=== PATIENT | male | born 1995 | race Caucasian/White ===

== ENCOUNTER 2021-06-07 18:26 | Emergency (ER) | payer BC, SELFPAY ==
[2021-06-07 18:51] VITALS: BP 124/82; PULSE 99; RESP 16; TEMP 36.9; O2SAT 94
--- NOTE | 2021-06-07 19:45 | ED_ITS ---
HPI - General Adult General: Chief complaint: General Medical Stated complaint: sore throat Time Seen by Provider: 06/07/21 19:36 Source: patient Mode of arrival: ambulatory Limitations: no limitations History of Present Illness: 26-year-old male states he has had a sore throat since Friday states that he saw Ryan Dialek on Friday started on amoxicillin states he is actually some improvement since then but he still having pain on the right side. States Friday he is having some difficulty swallowing that is improved states he still has pain with swallowing does have a slightly muffled voice denies any vomiting denies any diarrhea denies any fever. Associated symptoms: Deny chest pain, dyspnea, headache(s), nausea, rash or vomiting Review of Systems Const: Denies: fever(s), chills, body aches or change in appetite Eyes: Denies: blurry vision or eye discomfort ENMT: Reports: throat pain Card: Denies: chest pain Resp: Denies: dyspnea GI: Denies: abdominal pain, nausea, vomiting or diarrhea : Denies: dysuria Musc: Denies: neck pain or back pain Skin/Breast: Denies: rash Neuro: Denies: headache(s) Psych: Denies: depression Anam/Lymph: Denies: easy bruising All/Imm: Denies: urticaria Physical Exam Const: COMMON NORMALS: no acute distress, patient oriented x3 and healthy appearing HENMT: COMMON NORMALS: normocephalic and atraumatic HEAD & SCALP: normocephalic and atraumatic OTHER: Peritonsillar abscess to right tonsil with some uvular deviation he is handling secretions well no difficulty breathing Eye: COMMON NORMALS: Equal, round and reactive pupils present and EOMs intact bilaterally PUPIL: Yes Equal, round and reactive pupils present Neck/C-Spine: COMMON NORMALS: full ROM and supple Chest: COMMONS NORMALS: normal inspection of the chest and normal palpation of entire chest wall Resp: COMMON NORMALS: normal respiratory effort, No retractions, No use of accessory muscles and clear to auscultation bilaterally AUSCULTATION: clear to auscultation bilaterally Cardio: COMMON NORMALS: regular rate, regular rhythm and No murmurs present (Cardio) RATE: regular rate RHYTHM: regular rhythm GI: COMMON NORMALS: Normal to inspection, nondistended, normoactive bowel sounds present, Soft to palpation, non-tender and no masses PALPATION: Yes Soft to palpation Extremity: COMMON NORMALS: normal to inspection and full ROM Neuro: COMMON NORMALS: patient oriented x3, moves all extremities and no focal motor deficits Psych: COMMON NORMALS: mental status grossly normal, Normal thought process present and cooperative THOUGHT PROCESS: Normal thought process present Skin: COMMON NORMALS: no rashes or lesions noted and no wounds GENERAL SKIN EXAM: no rashes or lesions noted Course Vital Signs: Vital signs: Vital Signs Temperature 98.4 F 06/07/21 18:51 Pulse Rate 99 06/07/21 18:51 Respiratory Rate 16 06/07/21 18:51 Blood Pressure 124/82 06/07/21 18:51 Pulse Oximetry 94 06/07/21 18:51 [facility] - General Adult Medical Decision Making Patient presents here with peritonsillar abscess I did speak to ENT we'll give him Decadron clindamycin he is to follow-up with ENT in the morning he is handling secretions well having no difficulty breathing he is return if worsening he understands agrees to plan. Lab Data : 06/07/21 19:45 Laboratory Results WBC 14.9 10^3/uL (4.0-10.0) H 06/07/21 19:45 RBC 5.27 10^6/uL (4.1-5.3) 06/07/21 19:45 Hgb 15.0 g/dL (11.7-16.6) 06/07/21 19:45 Hct 44.9 % (42.0-52.0) 06/07/21 19:45 MCV 85.2 fl (80-94) 06/07/21 19:45 MCH 28.5 pg (28.0-34.0) 06/07/21 19:45 MCHC 33.4 g/dL (30.0-36.0) 06/07/21 19:45 RDW 11.7 % (12.1-15.1) L 06/07/21 19:45 Plt Count 411 10^3/cmm (130-400) H 06/07/21 19:45 MPV 10.0 fL (7.4-10.4) 06/07/21 19:45 Neut % (Auto) 64.3 % 06/07/21 19:45 Lymph % (Auto) 21.5 % 06/07/21 19:45 [place] % (Auto) 9.4 % 06/07/21 19:45 Eos % (Auto) 3.8 % 06/07/21 19:45 Baso % (Auto) 0.4 % 06/07/21 19:45 Neut # (Auto) 9.54 10^3/uL (1.8-7.7) H 06/07/21 19:45 Lymph # (Auto) 3.2 10^3/uL (0.8-4.8) 06/07/21 19:45 [place] # (Auto) 1.4 10^3/uL (0.2-0.9) H 06/07/21 19:45 Eos # (Auto) 0.6 10^3/uL (0.0-0.8) 06/07/21 19:45 Baso # (Auto) 0.1 10^3/uL (0.0-0.1) 06/07/21 19:45 Nucleated RBC % (auto) 0 % 06/07/21 19:45 Nucleated RBCs # 0.0 /100WBC 06/07/21 19:45 Discharge Plan Discharge Patient Disposition: Home Clinical Impression: Abscess, peritonsillar Condition: Stable Prescriptions: New clindamycin HCl 300 mg capsule 300 mg PO Q8H 7 Days Qty: 21 0RF Discharge Orders: Discharge ED (Routine); Ordered 06/07/21 Ordered By: Yesenia Brown Referrals: Terrell Carpio MD [Physician] - 1-3 days Flor Reid FNP-C [Primary Care Provider] - Discharge Diet: Advance as tolerated Discharge Activity: Resume usual activity Coding Level of Care Code ED Workers Compensation Claims Examiner for Chg Fwd Exam Comprehensive
[2021-06-07] MEDS: dexamethasone 10 mg/mL INJ IVP (19:47)
[2021-06-07] MEDS: sodium chloride 0.9% 1,000 ML 999 ML IV (19:49)
[2021-06-07 19:55] LABS: Basophils # 0.1 10^3/uL (0.0-0.1); Basophils % 0.4 %; Eosinophils # 0.6 10^3/uL (0.0-0.8); Eosinophils % 3.8 %; Hematocrit 44.9 % (42.0-52.0); Lymphocytes # 3.2 10^3/uL (0.8-4.8); Lymphocytes % 21.5 %; Mean Corpuscular HGB Conc 33.4 g/dL (30.0-36.0); Mean Corpuscular Hemoglobin 28.5 pg (28.0-34.0); Mean Corpuscular Volume 85.2 fl (80-94); Monocytes # 1.4 10^3/uL (0.2-0.9); Monocytes % 9.4 %; Neutrophils # 9.54 10^3/uL (1.8-7.7); Neutrophils % 64.3 %; Nucleated Red Blood Cells % 0 %; Platelet Count 411 10^3/cmm (130-400); Red Blood Count 5.27 10^6/uL (4.1-5.3); Red Cell Distribution Width 11.7 % (12.1-15.1); White Blood Count 14.9 10^3/uL (4.0-10.0)
[2021-06-07 20:50] VITALS: RESP 16
--- NOTE | 2021-06-08 06:38 | DCPLANNER ---
Addendum entered by Liv Goldman 06/08/21 14:39: Patient had a follow up appointment scheduled for 06.08.21 with ENT - patient did attend appointment. Original Note: manager creative had message to schedule a follow up appointment for patient with ENT. manager creative emailed patients information to Saadia Cortes Angelica and Catrachita at [facility] General Surgery / ENT clinic. Patients information will be printed and reviewed. Clinic will call patient with appointment information.
== END 2021-06-07 20:30 | disposition home or self-care (01) ==
PROVIDERS: Emergency Provider Emergency Medicine; PCP Nurse Practitioner Family
DX: J36 Peritonsillar abscess (principal)
CPT/HCPCS: 85025; 96361; 96374; 99283; J1100; J7030

== ENCOUNTER → 2021-06-08 09:20 | Outpatient (BNVA) | payer BC, SELFPAY | PROVIDERS: Visit Provider Otolaryngology | DX: J36 Peritonsillar abscess (principal) | CPT/HCPCS: 87070; 87075; 87077; 87205 ==

== ENCOUNTER 2022-04-23 17:51 | Emergency (ER) | payer BC, SELFPAY ==
--- NOTE | 2022-04-23 18:12 | XRR_ITS ---
PROCEDURE INFORMATION: Exam: XR Chest Exam date and time: 04/23/2022 6:27 PM Age: 27 years old Clinical indication: Cough TECHNIQUE: Imaging protocol: Radiologic exam of the chest. Views: 1 view. COMPARISON: CR XR chest 2V* [id number] 09/24/2016 2:03 PM FINDINGS: Lungs: There is a small cavitary lesion in the left lateral lung base. This measures about 4 cm. RUL azygous lobe/fissure. Pleural spaces: No effusion or pneumothorax noted. Heart/Mediastinum: Unremarkable. No cardiomegaly. Bones/joints: Unremarkable. XR/XR chest 1V portable [id number] IMPRESSION: Left lateral lung base small cavitary lesion, which may be a lung abscess or cavitary pneumonia. CT chest should be considered. This is new from prior.
[2022-04-23 18:17] VITALS: BP 133/79; PULSE 114; RESP 16; TEMP 37.1; O2SAT 96; BMI 32.1
--- NOTE | 2022-04-23 18:27 | W.ED.EXTPRO ---
HPI - Extremity Problem General: Chief complaint: Upper Respiratory Infection Stated complaint: cough/congestion Time Seen by Provider: 04/23/22 18:24 Source: patient Mode of arrival: ambulatory Limitations: no limitations History of Present Illness: 27-year-old male states he had cough congestion over the last 2 days. States the cough has been dry in nature. He states he has had some body aches low-grade fevers he has had no sick contacts states his cough is worsened today he denies any shortness of breath he is in no distress. Denies any pain anywhere. Denies any worsening proving factors. Associated symptoms: Deny chest pain or rash Review of Systems Const: Reports: chills and body aches Eyes: Denies: blurry vision or eye discomfort ENMT: Denies: throat pain or dental pain Card: Denies: chest pain Resp: Reports: non-productive cough GI: Denies: abdominal pain, nausea, vomiting or diarrhea : Denies: dysuria Musc: Denies: neck pain or back pain Skin/Breast: Denies: rash Neuro: Denies: headache(s) Psych: Denies: depression Anam/Lymph: Denies: easy bruising All/Imm: Denies: urticaria PFSH ED PFSH: Medical History (Updated 04/23/22 @ 20:08 by Yesenia Brown MD) Peritonsillar abscess Social History Smoking and tobacco status: never smoked Physical Exam Const: COMMON NORMALS: no acute distress, patient oriented x3 and healthy appearing HENMT: COMMON NORMALS: normocephalic and atraumatic HEAD & SCALP: normocephalic and atraumatic Eye: COMMON NORMALS: Equal, round and reactive pupils present and EOMs intact bilaterally PUPIL: Yes Equal, round and reactive pupils present Neck/C-Spine: COMMON NORMALS: full ROM and supple Chest: COMMONS NORMALS: normal inspection of the chest and normal palpation of entire chest wall Resp: COMMON NORMALS: normal respiratory effort, No retractions, No use of accessory muscles and clear to auscultation bilaterally AUSCULTATION: clear to auscultation bilaterally Cardio: COMMON NORMALS: regular rate, regular rhythm and No murmurs present (Cardio) RATE: regular rate RHYTHM: regular rhythm GI: COMMON NORMALS: Normal to inspection, nondistended, normoactive bowel sounds present, Soft to palpation, non-tender and no masses PALPATION: Yes Soft to palpation Extremity: COMMON NORMALS: normal to inspection and full ROM Neuro: COMMON NORMALS: patient oriented x3, moves all extremities and no focal motor deficits Psych: COMMON NORMALS: mental status grossly normal, Normal thought process present and cooperative THOUGHT PROCESS: Normal thought process present Skin: COMMON NORMALS: no rashes or lesions noted and no wounds GENERAL SKIN EXAM: no rashes or lesions noted Course Vital Signs: Vital signs: Vital Signs Temperature 98.7 F 04/23/22 18:17 Pulse Rate 114 H 04/23/22 18:17 Respiratory Rate 16 04/23/22 18:17 Blood Pressure 133/79 04/23/22 18:17 Pulse Oximetry 96 04/23/22 18:17 Oxygen Delivery Me thod 04/23/22 18:17 MDM - Extremity (Nontraumatic) Medical Decision Making Patient presents here with cough congestion likely an upper respiratory infection x-ray was a concern for a lesion but CT scan was normal he is well-appearing here he is in no distress he is stable for discharge he is to follow-up his PCP and return if worsening. Lab Data 04/23/22 19:15 04/23/22 19:15 Radiology Impressions Chest X-Ray 04/23/22 18:12 IMPRESSION: Left lateral lung base small cavitary lesion, which may be a lung abscess or cavitary pneumonia. CT chest should be considered. This is new from prior. Chest CT 04/23/22 18:41 IMPRESSION: 1. No definite acute finding visualized. 2. The suspected lesion on the same-day chest x-ray is explained by some lingular atelectasis or scarring in the adjacent subdiaphragmatic tissue. 3. A few chronic/incidental findings above. Laboratory Results WBC 13.5 10^3/uL (4.0-10.0) H 04/23/22 19:15 RBC 5.49 10^6/uL (4.1-5.3) H 04/23/22 19:15 Hgb 15.2 g/dL (11.7-16.6) 04/23/22 19:15 Hct 45.7 % (42.0-52.0) 04/23/22 19:15 MCV 83.2 fl (80-94) 04/23/22 19:15 MCH 27.7 pg (28.0-34.0) L 04/23/22 19:15 MCHC 33.3 g/dL (30.0-36.0) 04/23/22 19:15 RDW 11.9 % (12.1-15.1) L 04/23/22 19:15 Plt Count 351 10^3/cmm (130-400) 04/23/22 19:15 MPV 10.6 fL (7.4-10.4) H 04/23/22 19:15 Neut % (Auto) 67.9 % 04/23/22 19:15 Lymph % (Auto) 19.0 % 04/23/22 19:15 [place] % (Auto) 7.7 % 04/23/22 19:15 Eos % (Auto) 3.9 % 04/23/22 19:15 Baso % (Auto) 0.8 % 04/23/22 19:15 Neut # (Auto) 9.17 10^3/uL (1.8-7.7) H 04/23/22 19:15 Lymph # (Auto) 2.6 10^3/uL (0.8-4.8) 04/23/22 19:15 [place] # (Auto) 1.0 10^3/uL (0.2-0.9) H 04/23/22 19:15 Eos # (Auto) 0.5 10^3/uL (0.0-0.8) 04/23/22 19:15 Baso # (Auto) 0.1 10^3/uL (0.0-0.1) 04/23/22 19:15 Nucleated RBC % (auto) 0 % 04/23/22 19:15 Nucleated RBCs # 0.0 /100WBC 04/23/22 19:15 Sodium 137 mmol/L (136-145) 04/23/22 19:15 Potassium 3.9 mmol/L (3.5-5.1) 04/23/22 19:15 Chloride 100 mmol/L (98-107) 04/23/22 19:15 Carbon Dioxide 26 mmol/L (22-29) 04/23/22 19:15 Anion Gap 14.9 (5-19) 04/23/22 19:15 BUN 9 mg/dL (6-20) 04/23/22 19:15 Creatinine 1.0 mg/dL (0.7-1.2) 04/23/22 19:15 GFR Calculation 89.6 mL/min (90-130) L 04/23/22 19:15 Glucose 84 mg/dL (65-115) 04/23/22 19:15 Calculated Osmolality 282 mOsm/kg (285-295) L 04/23/22 19:15 Calcium 9.5 mg/dL (8.5-10.5) 04/23/22 19:15 Total Bilirubin 0.9 mg/dL (0.15-1.2) 04/23/22 19:15 AST 16 U/L (0-40) 04/23/22 19:15 ALT 20 U/L (0-41) 04/23/22 19:15 Alkaline Phosphatase 113 U/L (40-130) 04/23/22 19:15 Total Protein 8.4 g/dL (6.6-8.7) 04/23/22 19:15 Albumin 4.5 g/dL (3.5-5.2) 04/23/22 19:15 Globulin 3.9 g/dL (1.3-4.6) 04/23/22 19:15 Influenza Type A Ag Negative (Negative) 04/23/22 19:25 Influenza Type B Ag Negative (Negative) 04/23/22 19:25 Discharge Plan Discharge Patient Disposition: Home Clinical Impression: Upper respiratory infection Condition: Stable Prescriptions: No Action prednisone 20 mg tablet 40 mg PO DAILY 3 Days Qty: 6 0RF Rx Instructions: Take 2 tablets daily for 3 days. Primatene Mist 0.125 mg/actuation HFA aerosol inhaler 1 puff inhalation Q6H PRN Rx Instructions: may repeat once after 1 minute amoxicillin-pot clavulanate 875-125 mg tablet 1 tab PO BID Qty: 20 0RF Discharge Orders: Discharge ED (Routine); Ordered 04/23/22 Ordered By: Yesenia Brown Discharge Diet: Advance as tolerated Discharge Activity: Resume usual activity Patient Instructions: Upper Respiratory Infection (ED) Coding Level of Care Code ED Programmable Logic Controller Assembler for Chg Fwd Exam Comprehensive
--- NOTE | 2022-04-23 18:41 | CTR_ITS ---
PROCEDURE INFORMATION: Exam: CT Chest With Contrast; Diagnostic Exam date and time: 04/23/2022 7:11 PM Age: 27 years old Clinical indication: Cough; Additional info: Lung lesion TECHNIQUE: Imaging protocol: Diagnostic computed tomography of the chest with contrast. Radiation optimization: All CT scans at this facility use at least one of these dose optimization techniques: automated exposure control; mA and/or kV adjustment per patient size (includes targeted exams where dose is matched to clinical indication); or iterative reconstruction. Contrast material: OMNI 350; Contrast volume: 100 ml; Contrast route: INTRAVENOUS (IV); COMPARISON: CR (CHEST, ) 04/23/2022 6:27 PM RADIATION DOSE METRICS: Total DLP (mGy-cm): 670.5 FINDINGS: Lungs: Minimal lingular atelectasis or scarring. No cavitary lesion visualized. Lungs otherwise clear. RUL azygous lobe/fissure. Pleural spaces: No pneumothorax. No pleural effusion. Heart: The heart is normal size. No pericardial effusion. Lymph nodes: No bulky mediastinal or hilar lymphadenopathy noted. A few scattered mediastinal lymph nodes are likely physiologic. These are borderline prominent, with no bulky or necrotic lymphadenopathy. Vasculature: No acute finding noted. No aortic aneurysm. Liver: Possible mild hepatic steatosis. Bones/joints: No acute fracture. Soft tissues: Unremarkable. CT/CT chest w con* [id number] IMPRESSION: 1. No definite acute finding visualized. 2. The suspected lesion on the same-day chest x-ray is explained by some lingular atelectasis or scarring in the adjacent subdiaphragmatic tissue. 3. A few chronic/incidental findings above.
[2022-04-23] MEDS: dexamethasone 10 mg/mL INJ IM (19:00)
[2022-04-23] MEDS: iohexol 350 mg/mL 500 mL Btl (per mL) IV (19:23)
[2022-04-23 19:47] LABS: Basophils # 0.1 10^3/uL (0.0-0.1); Basophils % 0.8 %; Eosinophils # 0.5 10^3/uL (0.0-0.8); Eosinophils % 3.9 %; Hematocrit 45.7 % (42.0-52.0); Hemoglobin 15.2 g/dL (11.7-16.6); Lymphocytes # 2.6 10^3/uL (0.8-4.8); Mean Corpuscular HGB Conc 33.3 g/dL (30.0-36.0); Mean Corpuscular Hemoglobin 27.7 pg (28.0-34.0); Mean Corpuscular Volume 83.2 fl (80-94); Mean Platelet Volume 10.6 fL (7.4-10.4); Monocytes % 7.7 %; Neutrophils # 9.17 10^3/uL (1.8-7.7); Neutrophils % 67.9 %; Nucleated Red Blood Cells % 0 %; Platelet Count 351 10^3/cmm (130-400); Red Blood Count 5.49 10^6/uL (4.1-5.3); Red Cell Distribution Width 11.9 % (12.1-15.1); White Blood Count 13.5 10^3/uL (4.0-10.0)
[2022-04-23 19:52] LABS: Alanine Aminotransferase 20 U/L (0-41); Albumin Level 4.5 g/dL (3.5-5.2); Alkaline Phosphatase 113 U/L (40-130); Anion Gap 14.9 (5-19); Aspartate Amino Transferase 16 U/L (0-40); Blood Urea Nitrogen 9 mg/dL (6-20); Calcium 9.5 mg/dL (8.5-10.5); Carbon Dioxide 26 mmol/L (22-29); Chloride 100 mmol/L (98-107); Creatinine Clr Calc Pharmacy 148.5937; Globulin 3.9 g/dL (1.3-4.6); Glomerular Filtration Rate 89.6 mL/min (90-130); Glucose 84 mg/dL (65-115); Osmolality Calculated 282 mOsm/kg (285-295); Potassium 3.9 mmol/L (3.5-5.1); Sodium 137 mmol/L (136-145); Total Bilirubin 0.9 mg/dL (0.15-1.2); Total Protein 8.4 g/dL (6.6-8.7)
[2022-04-23 20:05] LABS: Influenza A by IFA Negative (Negative); Influenza B by IFA Negative (Negative)
== END 2022-04-23 20:20 | disposition home or self-care (01) ==
PROVIDERS: Emergency Provider Emergency Medicine
DX: J06.9 Acute upper respiratory infection, unspecified (principal)
CPT/HCPCS: 36415; 71045; 71260; 80053; 85025; 87040; 87804; 96372; 99285; J1100; Q9967

== ENCOUNTER 2022-05-11 06:24 | Emergency (ER) | payer BC, SELFPAY ==
[2022-05-11 06:30] VITALS: BP 113/66; PULSE 147; RESP 18; TEMP 37.9; O2SAT 90; BMI 23.1
[2022-05-11 06:33] VITALS: BP 114/73; PULSE 133; RESP 20; O2SAT 92
--- NOTE | 2022-05-11 06:42 | ED_ITS ---
HPI - Fever General: Chief Complaint: Fever Stated Complaint: High fever and coughing Time Seen by Provider: 05/11/22 06:33 Source: patient Mode of arrival: ambulatory History of Present Illness: 27-year-old male presents emergency room with complaints of nonproductive cough myalgias shortness of breath fever and chills. Patient has a history of asthma. He stated he had been using an albuterol inhaler but on his medicine list he has Primatene Mist. He is tachycardic in the 140s when he first arrived. He is otherwise comfortable and breathing without difficulty denies any nausea vomiting or diarrhea he was exposed to a c oworker who has been tested positive for influenza. MD elicited complaint: fever and malaise Onset (ago): day(s) (1) Context: sick contacts Exacerbating factors: nothing Relieving factors: nothing Associated symptoms: Reports cough, headache(s), myalgias, nasal congestion, rhinorrhea and short of breath; Deny abdominal pain, flank pain, chills, chest pain, confusion, diarrhea, dysuria, extremity pain, nausea, night sweats, rash, sinus pain, stiffness, sore throat, vomiting or weight loss Treatments prior to arrival fever: none Review of Systems Const: Denies: fever(s), chills or night sweats ENMT: Reports: nasal congestion; Denies: sinus pain Card: Denies: chest pain Resp: Denies: dyspnea, productive cough or non-productive cough GI: Denies: abdominal pain, nausea, vomiting or diarrhea : Denies: flank pain, dysuria, urinary frequency or urinary urgency Musc: Denies: extremity pain Skin/Breast: Denies: rash or pruritus Neuro: Reports: headache(s); Denies: confusion PFSH ED PFSH: Medical History (Updated 05/11/22 @ 06:59 by Brando Lora DO) Acquired deviated nasal septum Asthma Peritonsillar abscess Social History Smoking and tobacco status: never smoked Physical Exam Const: COMMON NORMALS: no acute distress GENERAL APPEARANCE: cooperative and comfortable ORIENTATION/CONSCIOUSNESS: Yes awake, Yes oriented to person, Yes oriented to place and Yes oriented to time HENMT: COMMON NORMALS: normocephalic, atraumatic, hearing grossly normal bilaterally, external ears normal, EAC's normal, TM's normal bilaterally, Normal nasal mucous membranes and turbinates present, moist oral mucous membranes and oropharynx normal HEAD & SCALP: normocephalic and atraumatic NOSE: Normal nasal mucous membranes and turbinates present EXTERNAL EAR: Yes external ears normal EXTERNAL AUDITORY CANAL: EAC's normal TYMPANIC MEMBRANE: TM's normal bilaterally Eye: COMMON NORMALS: Equal, round and reactive pupils present, EOMs intact bilaterally, conjunctivae normal and no scleral icterus CONJUNCTIVA: Yes conjunctivae normal PUPIL: Yes Equal, round and reactive pupils present Neck/C-Spine: COMMON NORMALS: full ROM, no lymphadenopathy, supple and no JVD Lymph: LYMPHATIC: no lymphadenopathy noted and no lymphedema noted Resp: COMMON NORMALS: normal respiratory effort, No retractions, No use of accessory muscles and clear to auscultation bilaterally AUSCULTATION: clear to auscultation bilaterally Cardio: COMMON NORMALS: no JVD, regular rate, regular rhythm and No murmurs present (Cardio) RATE: regular rate RHYTHM: regular rhythm GI: COMMON NORMALS: Soft to palpation and No hepatosplenomegaly present AUSCULTATION: Yes normoactive bowel sounds PALPATION: Yes Soft to palpation, No Tenderness to palpation present (GI), No Guarding due to palpation present (GI) and Yes No hepatosplenomegaly present Extremity: COMMON NORMALS: normal to inspection, capillary refill normal, no clubbing, cyanosis or edema, no calf tenderness and no pedal edema Neuro: SENSORIUM/ORIENTATION: Yes oriented to person, Yes oriented to place and Yes oriented to time Skin: COMMON NORMALS: no rashes or lesions noted GENERAL SKIN EXAM: no rashes or lesions noted Course Vital Signs: Vital signs: Vital Signs Temperature 100.3 F H 05/11/22 06:30 Pulse Rate 133 H 05/11/22 06:33 Respiratory Rate 20 H 05/11/22 06:33 Blood Pressure 114/73 05/11/22 06:33 Pulse Oximetry 92 05/11/22 06:33 Oxygen Delivery Me thod 05/11/22 06:33 MDM - Fever Medical Decision Making Based on presentation and exam clinically patient has influenza started on Tamif katharina within the 48-hour window. he feels he has been wheezing quite a bit at night. Given his history of asthma we will go ahead and also put him on a steroid taper given a prescription for albuterol follow-up as needed Medical Records I reviewed the patient's medical records. Lab Data I reviewed the patient's lab results. Discharge Plan Discharge Patient Disposition: Home Clinical Impression: Influenza Condition: Stable Prescriptions: New prednisone 20 mg tablet 20 mg PO TID Qty: 15 0RF Rx Instructions: 1 p.o. 3 times daily x3 days, 1 p.o. twice daily x2 days, 1 p.o. daily x2 days albuterol sulfate 90 mcg/actuation HFA aerosol inhaler 2 inh INHALATION Q4H PRN (Reason: shortness of breath or wheezing) Qty: 18 0RF Tamiflu 75 mg capsule 75 mg PO BID 5 Days Qty: 10 0RF Discontinued prednisone 20 mg tablet 40 mg PO DAILY 3 Days Qty: 6 0RF Rx Instructions: Take 2 tablets daily for 3 days. Primatene Mist 0.125 mg/actuation HFA aerosol inhaler 1 puff inhalation Q6H PRN Rx Instructions: may repeat once after 1 minute amoxicillin-pot clavulanate 875-125 mg tablet 1 tab PO BID Qty: 20 0RF Discharge Orders: Discharge ED (Routine); Ordered 05/11/22 Ordered By: Brando Lora Discharge Diet: Usual diet Discharge Activity: Increase activity as tolerated Patient Instructions: Opioid Safety, Pain Management Activity Restrictions/Additional Instructions: You are seen today for upper respiratory infection. Based on your history and presentation clinically you were diagnosed with influenza. Started on Tamiflu 1 tablet twice daily prednisone taper and albuterol rather than Primatene Mist. Use the albuterol as needed for cough wheezing shortness of breath return to the ER if you have further problems. Coding Level of Care Code ED Linoleum Tile Layer for Chloe Alejo
[2022-05-11 07:14] VITALS: BP 114/73; PULSE 127; RESP 18; O2SAT 93
== END 2022-05-11 07:18 | disposition home or self-care (01) ==
PROVIDERS: Emergency Provider Family Medicine
DX: J11.1 Influenza due to unidentified influenza virus with other respiratory manifestations (principal)
CPT/HCPCS: 99284

== ENCOUNTER 2022-09-22 23:26 | Emergency (ER) | payer BC, SELFPAY ==
[2022-09-22 23:33] VITALS: BP 153/105; PULSE 97; RESP 13; TEMP 36.6; O2SAT 96; BMI 23.1
--- NOTE | 2022-09-22 23:33 | ED_ITS ---
HPI - Chest Pain General: Chief Complaint: Shortness of Breath/Dyspnea Stated Complaint: chest pain Time Seen by Provider: 09/22/22 23:33 History of Present Illness: 27-year-old male patient comes in today with some increased shortness of breath and some chest discomfort. Patient has a history of asthma. Patient appears nontoxic. Patient reports alcohol consumption but no tobacco or other smoking. Patient used an albuterol inhaler which helped with his breathing. Respirations are even. Skin is warm and dry. Patient is mildly obese. Besides asthma patient has no other chronic medical problems. Associated symptoms: Reports dyspnea; Deny nausea or vomiting Review of Systems General: Reports: 10 or more systems reviewed and unremarkable except in HPI and below Card: Reports: chest pain Resp: Reports: dyspnea and wheezing GI: Denies: nausea or vomiting : Denies: difficulty urinating Musc: Denies: extremity pain Skin/Breast: Denies: rash PFS ED PFSH: Medical History (Updated 09/23/22 @ 00:46 by ZION Barrios) Acquired deviated nasal septum Asthma Peritonsillar abscess Social History Smoking and tobacco status: never smoked Physical Exam Const: COMMON NORMALS: alert HENMT: COMMON NORMALS: normocephalic HEAD & SCALP: normocephalic THROAT: abnormal tonsil bilateral hypertrophy Neck/C-Spine: COMMON NORMALS: full ROM Resp: COMMON NORMALS: normal respiratory effort AUSCULTATION: wheezes and diminished lung sounds Cardio: COMMON NORMALS: regular rate and regular rhythm RATE: regular rate RHYTHM: regular rhythm GI: COMMON NORMALS: Soft to palpation PALPATION: Yes Soft to palpation Extremity: COMMON NORMALS: normal to inspection Neuro: SENSORIUM/ORIENTATION: Yes alert Psych: COMMON NORMALS: cooperative Skin: COMMON NORMALS: turgor normal GENERAL SKIN EXAM: turgor normal Course Vital Signs: Vital signs: Vital Signs Temperature 97.8 F 09/22/22 23:33 Pulse Rate 95 09/23/22 00:26 Respiratory Rate 16 09/23/22 00:26 Blood Pressure 153/101 09/22/22 23:50 Pulse Oximetry 96 09/23/22 00:26 Oxygen Delivery Me thod Room Air 09/23/22 00:26 MDM - Chest Pain Medical Decision Making 27-year-old male patient came in today with complaints of shortness of breath and chest discomfort. On exam patient appears nontoxic. Heart rate is tachycardic in the low 100s. Normal heart tones. Lungs are decreased with occasional expiratory wheeze. Skin is warm and dry. Vital signs are normal except for some elevated blood pressure. Differential diagnosis includes but not limited to CHF, exacerbation of asthma, unlikely ACS, myocarditis. Laboratory values were unremarkable except for some mild leukocytosis at 12,000. Chest x-ray noted atelectasis versus patchy infiltrate to the right mid to lower lung. Recommend treatment for exacerbation of asthma with community- acquired pneumonia. Most likely pneumonia is viral. We will go ahead and treat with doxycycline 100 mg twice a day for 7 days to cover for secondary bacterial infection. Patient was also given a short burst of steroids and albuterol inhaler with recommendations for follow-up. Patient reported understanding and agreed to plan. Lab Data 09/22/22 23:50 09/22/22 23:50 Laboratory Results WBC 12.0 10^3/uL (4.0-10.0) H 09/22/22 23:50 RBC 5.38 10^6/uL (4.1-5.3) H 09/22/22 23:50 Hgb 14.6 g/dL (11.7-16.6) 09/22/22 23:50 Hct 44.9 % (42.0-52.0) 09/22/22 23:50 MCV 83.5 fl (80-94) 09/22/22 23:50 MCH 27.1 pg (28.0-34.0) L 09/22/22 23:50 MCHC 32.5 g/dL (30.0-36.0) 09/22/22 23:50 RDW 11.9 % (12.1-15.1) L 09/22/22 23:50 Plt Count 331 10^3/cmm (130-400) 09/22/22 23:50 MPV 10.2 fL (7.4-10.4) 09/22/22 23:50 Neut % (Auto) 52.4 % 09/22/22 23:50 Lymph % (Auto) 34.3 % 09/22/22 23:50 [place] % (Auto) 7.7 % 09/22/22 23:50 Eos % (Auto) 4.2 % 09/22/22 23:50 Baso % (Auto) 0.7 % 09/22/22 23:50 Neut # (Auto) 6.31 10^3/uL (1.8-7.7) 09/22/22 23:50 Lymph # (Auto) 4.1 10^3/uL (0.8-4.8) 09/22/22 23:50 [place] # (Auto) 0.9 10^3/uL (0.2-0.9) 09/22/22 23:50 Eos # (Auto) 0.5 10^3/uL (0.0-0.8) 09/22/22 23:50 Baso # (Auto) 0.1 10^3/uL (0.0-0.1) 09/22/22 23:50 Nucleated RBC % (auto) 0 % 09/22/22 23:50 Nucleated RBCs # 0.0 /100WBC 09/22/22 23:50 ESR 8 mm/hr (0-10) 09/22/22 23:50 Sodium 139 mmol/L (136-145) 09/22/22 23:50 Potassium 3.7 mmol/L (3.5-5.1) 09/22/22 23:50 Chloride 103 mmol/L (98-107) 09/22/22 23:50 Carbon Dioxide 23 mmol/L (22-29) 09/22/22 23:50 Anion Gap 16.7 (5-19) 09/22/22 23:50 BUN 13 mg/dL (6-20) 09/22/22 23:50 Creatinine 0.8 mg/dL (0.7-1.2) 09/22/22 23:50 GFR Calculation 116.0 mL/min (90-130) 09/22/22 23:50 Glucose 102 mg/dL (65-115) 09/22/22 23:50 Calculated Osmolality 288 mOsm/kg (285-295) 09/22/22 23:50 Calcium 8.8 mg/dL (8.5-10.5) 09/22/22 23:50 Total Bilirubin 0.5 mg/dL (0.15-1.2) 09/22/22 23:50 AST 16 U/L (0-40) 09/22/22 23:50 ALT 19 U/L (0-41) 09/22/22 23:50 Alkaline Phosphatase 79 U/L (40-130) 09/22/22 23:50 Troponin T Gen 5 ng/L 6 ng/L (0-15) 09/22/22 23:50 C-Reactive Protein 4.8 mg/L (0.0-4.9) 09/22/22 23:50 NT-Pro-B Natriuret Pep 36 pg/mL (0-125) 09/22/22 23:50 Total Protein 7.0 g/dL (6.6-8.7) 09/22/22 23:50 Albumin 4.3 g/dL (3.5-5.2) 09/22/22 23:50 Globulin 2.7 g/dL (1.3-4.6) 09/22/22 23:50 EKG Data EKG 1: EKG interpretation date: 09/22/22 EKG interpretation time: 23:54 Prior EKG tracings: not available for review Interpretation: EKG shows a sinus tachycardia with a regular rate at [address] elevation or ectopy is noted. No prior exam was available for comparison. Discharge Plan Discharge Patient Disposition: Home Clinical Impression: Community acquired pneumonia Qualifiers: Laterality: right Lung location: unspecified part of lung Qualified Code(s): J18.9 - Pneumonia, unspecified organism Asthma Qualifiers: Asthma severity: mild Asthma persistence: intermittent Asthma complication type: with acute exacerbation Qualified Code(s): J45.21 - Mild intermittent asthma with (acute) exacerbation Condition: Stable Prescriptions: New doxycycline monohydrate 100 mg capsule 100 mg PO BID 7 Days Qty: 14 0RF albuterol sulfate 90 mcg/actuation HFA aerosol inhaler 2 inh inhalation Q4H PRN (Reason: shortness of breath or wheezing) Qty: 16 0RF prednisone 20 mg tablet 20 mg PO BID 5 Days Qty: 10 0RF No Action prednisone 20 mg tablet 20 mg PO TID Qty: 15 0RF Rx Instructions: 1 p.o. 3 times daily x3 days, 1 p.o. twice daily x2 days, 1 p.o. daily x2 days albuterol sulfate 90 mcg/actuation HFA aerosol inhaler 2 inh INHALATION Q4H PRN (Reason: shortness of breath or wheezing) Qty: 18 0RF Discharge Orders: Discharge ED (Routine); Ordered 09/23/22 Ordered By: Tomás Lundberg Discharge Diet: Usual diet Discharge Activity: Increase activity as tolerated Patient Instructions: Pneumonia (ED) Activity Restrictions/Additional Instructions: Healthy diet and exercise. Use acetaminophen and ibuprofen for pain. Use albuterol as needed for shortness of breath or cough. Take doxycycline monohydrate 100 mg 2 times a day for 7 days. Use prednisone 20 mg 2 times a day for 5 days. Follow-up with primary care as needed. Return to ED for new concerns. Stand Alone Forms: Work/School Release Coding Level of Care Code ED Business Relations Manager for Chloe Alejo
--- NOTE | 2022-09-22 23:37 | ECG_ITS ---
[facility] Test Date: 2022-09-22 Pat Name: Dustin Lung Department: Room: Gender: Male Sales Process Manager: : 1995 Requested By: Tomás Bishop Order Number: [id number] Paz MD: Gilberto Metz M.D. Measurements Intervals [place] Rate: 101 P: 68 [place]: 162 QRS: 71 QRSD: 106 T: 38 QT: 312 QTc: 405 Interpretive Statements SINUS TACHYCARDIA ABNORMAL RHYTHM ECG Compared to ECG 08/07/2016 18:29:22 Sinus rhythm no longer present Electronically Signed On 09-24-2022 0:07:48 CDT by Gilberto Metz M.D. [id number]
--- NOTE | 2022-09-22 23:37 | XRR_ITS ---
PROCEDURE INFORMATION: Exam: XR Chest Exam date and time: 09/22/2022 11:42 PM Age: 27 years old Clinical indication: Dyspnea and shortness of breath; Patient HX: Sob/dyspnea. History of asthma. TECHNIQUE: Imaging protocol: Radiologic exam of the chest. Views: 1 view. COMPARISON: CT chest w con* [id number] 04/23/2022 7:11 PM FINDINGS: Lungs: Incidentally noted is normal variant azygous lobe. Visualized portions of the lungs are clear. Pleural spaces: Unremarkable. No pleural effusion. No pneumothorax. Heart/Mediastinum: Heart is within normal limits of size. Bones/joints: Unremarkable. XR/XR chest 1V portable [id number] IMPRESSION: No acute infiltrate.
[2022-09-22 23:50] VITALS: BP 153/101; PULSE 98; RESP 16; O2SAT 98
[2022-09-23] LABS: Basophils # 0.1 10^3/uL (0.0-0.1); Basophils % 0.7 %; Eosinophils # 0.5 10^3/uL (0.0-0.8); Eosinophils % 4.2 %; Hematocrit 44.9 % (42.0-52.0); Hemoglobin 14.6 g/dL (11.7-16.6); Lymphocytes # 4.1 10^3/uL (0.8-4.8); Lymphocytes % 34.3 %; Mean Corpuscular HGB Conc 32.5 g/dL (30.0-36.0); Mean Corpuscular Hemoglobin 27.1 pg (28.0-34.0); Mean Corpuscular Volume 83.5 fl (80-94); Mean Platelet Volume 10.2 fL (7.4-10.4); Monocytes # 0.9 10^3/uL (0.2-0.9); Monocytes % 7.7 %; Neutrophils # 6.31 10^3/uL (1.8-7.7); Neutrophils % 52.4 %; Nucleated Red Blood Cells % 0 %; Platelet Count 331 10^3/cmm (130-400); Red Blood Count 5.38 10^6/uL (4.1-5.3); Red Cell Distribution Width 11.9 % (12.1-15.1)
[2022-09-23 00:08] LABS: Erythrocyte Sedimentation Rate 8 mm/hr (0-10)
[2022-09-23 00:20] LABS: Troponin T (5th) Once 6 ng/L (0-15)
[2022-09-23 00:24] LABS: Alanine Aminotransferase 19 U/L (0-41); Albumin Level 4.3 g/dL (3.5-5.2); Alkaline Phosphatase 79 U/L (40-130); Anion Gap 16.7 (5-19); Aspartate Amino Transferase 16 U/L (0-40); Blood Urea Nitrogen 13 mg/dL (6-20); C Reactive Protein 4.8 mg/L (0.0-4.9); Calcium 8.8 mg/dL (8.5-10.5); Carbon Dioxide 23 mmol/L (22-29); Chloride 103 mmol/L (98-107); Globulin 2.7 g/dL (1.3-4.6); Glucose 102 mg/dL (65-115); Osmolality Calculated 288 mOsm/kg (285-295); Potassium 3.7 mmol/L (3.5-5.1); Sodium 139 mmol/L (136-145); Total Bilirubin 0.5 mg/dL (0.15-1.2)
[2022-09-23] MEDS: ipratropium-albuterol 3 mL Neb INHALATION (00:25)
[2022-09-23 00:26] VITALS: PULSE 95; RESP 16; O2SAT 96
[2022-09-23 00:27] LABS: NT Pro B Type Natriuretic Pept 36 pg/mL (0-125)
[2022-09-23] MEDS: dexamethasone 10 mg/mL INJ IVP (00:50)
[2022-09-23] MEDS: doxycycline 100 mg Tablet PO (00:50)
[2022-09-23 00:59] VITALS: BP 140/76; PULSE 90; RESP 17; O2SAT 96
--- NOTE | 2022-09-29 14:20 | DCPLANNER ---
manager commercial real estate was triggered to call patient due to no primary care physician - patient sees Dr. Harris.
== END 2022-09-23 00:59 | disposition home or self-care (01) ==
PROVIDERS: Emergency Provider Nurse Practitioner Family; PCP Family Medicine
DX: J18.9 Pneumonia, unspecified organism (principal); J45.21 Mild intermittent asthma with (acute) exacerbation
CPT/HCPCS: 71045; 80053; 83880; 84484; 85025; 85651; 86140; 93005; 94640; 96374; 99285; J1100

== ENCOUNTER 2023-03-06 13:31 | Emergency (ER) | payer BC, SELFPAY ==
--- NOTE | 2023-03-06 14:58 | XR_ITS ---
WS: [id number] Exam: XR chest 1V portable [id number] Date/Time of Exam: 03/06/2023 2:58 PM Reason For Exam: dyspnea/cough Comparison 09/22/2022. Findings: The lungs are clear and fully expanded. Costophrenic angles are sharp. No infiltrates. Bronchovascula r relief appears normal. Cardiac silhouette is unremarkable. Bony elements are intact. IMPRESSION: Unremarkable chest radiograph.
--- NOTE | 2023-03-06 15:08 | W.ED.GENADLT ---
HPI - General Adult General: Chief complaint: Upper Respiratory Infection Stated complaint: abd/chest pain, congestion Time Seen by Provider: 03/06/23 14:58 Source: patient Mode of arrival: ambulatory History of Present Illness: 28-year-old male presents to the emergency room with abdominal pain chest congestion. The abdomen that he worried who he coughs just above his umbilicus. No fever cough nonproductive. Denies fever. No vomiting no diarrhea no previous Onset (ago): day(s) Location: abdomen Radiation: periumbilical Severity: moderate Quality: sharp Pain Consistency: intermittent Relieving factors: none Exacerbating factors: other (Cough) Associated symptoms: Reports cough; Deny chest pain, dyspnea or rash Treatments prior to arrival: none Review of Systems Const: Denies: fever(s) or chills Card: Denies: chest pain Resp: Denies: dyspnea GI: Denies: abdominal pain : Denies: dysuria, urinary frequency or urinary urgency Musc: Denies: neck pain or back pain Skin/Breast: Denies: rash PFSH ED PFSH: Medical History Acquired deviated nasal septum Asthma Peritonsillar abscess Social History Smoking and tobacco/nicotine status: never used tobacco/nicotine Physical Exam Const: GENERAL APPEARANCE: cooperative and comfortable ORIENTATION/CONSCIOUSNESS: Yes awake, Yes oriented to person, Yes oriented to place and Yes oriented to time HENMT: COMMON NORMALS: normocephalic, atraumatic and hearing grossly normal bilaterally HEAD & SCALP: normocephalic and atraumatic Resp: COMMON NORMALS: normal respiratory effort, No retractions, No use of accessory muscles and clear to auscultation bilaterally AUSCULTATION: clear to auscultation bilaterally Cardio: COMMON NORMALS: regular rate, regular rhythm and No murmurs present (Cardio) RATE: regular rate RHYTHM: regular rhythm GI: COMMON NORMALS: Soft to palpation and No hepatosplenomegaly present AUSCULTATION: Yes normoactive bowel sounds PALPATION: Yes Soft to palpation, No Tenderness to palpation present (GI), No Guarding due to palpation present (GI) and Yes No hepatosplenomegaly present OTHER: Mild rectus diastasis palpated. Protruding with Valsalva maneuver no masses no deformities no umbilical or abdominal wall hernias noted. Extremity: COMMON NORMALS: normal to inspection, capillary refill normal, no clubbing, cyanosis or edema, no calf tenderness and no pedal edema Neuro: SENSORIUM/ORIENTATION: Yes oriented to person, Yes oriented to place and Yes oriented to time Skin: COMMON NORMALS: no rashes or lesions noted GENERAL SKIN EXAM: no rashes or lesions noted Course Vital Signs: Vital signs: Vital Signs Temperature 97.9 F 03/06/23 15:12 Pulse Rate 94 03/06/23 15:27 Respiratory Rate 18 03/06/23 15:27 Blood Pressure 135/89 03/06/23 15:27 Pulse Oximetry 96 03/06/23 15:27 Oxygen Delivery Me thod Room Air 03/06/23 15:27 MDM - General Adult Medical Decision Making Pain reproducible with cough. Abdominal wall pain secondary to his coughing fits. Treat is respiratory symptoms with [id number] medications and albuterol as needed follow-up with primary care. Medical Records I reviewed the patient's medical records. Lab Data I reviewed the patient's lab results. 03/06/23 15:13 03/06/23 15:13 Laboratory Results WBC 11.90 10^3/uL (3.29-11.43) H 03/06/23 15:13 RBC 5.16 10^6/uL (3.85-5.65) 03/06/23 15:13 Hgb 13.70 g/dL (11.27-16.99) 03/06/23 15:13 Hct 42.4 % (37-53) 03/06/23 15:13 MCV 82.2 fl (82-101) 03/06/23 15:13 MCH 26.6 pg (27-33) L 03/06/23 15:13 MCHC 32.3 g/dL (30-55) 03/06/23 15:13 RDW 12.6 % (12.1-15.1) 03/06/23 15:13 Plt Count 335 10^3/cmm (157-399) 03/06/23 15:13 MPV 9.8 fL (7.4-10.4) 03/06/23 15:13 Neut % (Auto) 66.0 % 03/06/23 15:13 Lymph % (Auto) 22.8 % 03/06/23 15:13 [place] % (Auto) 6.1 % 03/06/23 15:13 Eos % (Auto) 3.9 % 03/06/23 15:13 Baso % (Auto) 0.5 % 03/06/23 15:13 Neut # (Auto) 7.86 10^3/uL (1.8-7.7) H 03/06/23 15:13 Lymph # (Auto) 2.7 10^3/uL (0.8-4.8) 03/06/23 15:13 [place] # (Auto) 0.7 10^3/uL (0.2-0.9) 03/06/23 15:13 Eos # (Auto) 0.5 10^3/uL (0.0-0.8) 03/06/23 15:13 Baso # (Auto) 0.1 10^3/uL (0.0-0.1) 03/06/23 15:13 Nucleated RBC % (auto) 0 % 03/06/23 15:13 Nucleated RBCs # 0.0 /100WBC 03/06/23 15:13 Sodium 138 mmol/L (136-145) 03/06/23 15:13 Potassium 3.9 mmol/L (3.5-5.1) 03/06/23 15:13 Chloride 102 mmol/L (98-107) 03/06/23 15:13 Carbon Dioxide 26 mmol/L (22-29) 03/06/23 15:13 Anion Gap 13.9 (5-19) 03/06/23 15:13 BUN 10 mg/dL (6-20) 03/06/23 15:13 Creatinine 0.8 mg/dL (0.7-1.2) 03/06/23 15:13 GFR Calculation 115.1 mL/min (90-130) 03/06/23 15:13 Glucose 95 mg/dL (65-115) 03/06/23 15:13 Calculated Osmolality 285 mOsm/kg (285-295) 03/06/23 15:13 Calcium 10.0 mg/dL (8.5-10.5) 03/06/23 15:13 Total Bilirubin 0.6 mg/dL (0.15-1.2) 03/06/23 15:13 AST 15 U/L (0-40) 03/06/23 15:13 ALT 18 U/L (0-41) 03/06/23 15:13 Alkaline Phosphatase 83 U/L (40-130) 03/06/23 15:13 Total Protein 7.8 g/dL (6.6-8.7) 03/06/23 15:13 Albumin 4.8 g/dL (3.5-5.2) 03/06/23 15:13 Globulin 3.0 g/dL (1.3-4.6) 03/06/23 15:13 All radiology interpretation(s) finalized by discharge Discharge Plan Discharge Patient Disposition: Home Clinical Impression: Abdominal wall pain, Viral URI with cough Condition: Stable Prescriptions: No Action albuterol sulfate 90 mcg/actuation HFA aerosol inhaler 2 inh inhalation Q4H PRN (Reason: shortness of breath or wheezing) Qty: 16 0RF fluticasone propion-salmeterol 250-50 mcg/dose blister with device 1 inh INHALATION BID Discharge Orders: Discharge ED (Routine); Ordered 03/06/23 Ordered By: Brando Lora Patient Instructions: Abdominal Pain (ED), Opioid Safety, Pain Management Activity Restrictions/Additional Instructions: Thank you for choosing [facility] for your healthcare needs today. Please realize this is an emergency room and that we are providing you with a medical screening exam and this may not be complete and all inclusive of all the testing and or work up that you may need to determine your ailment or severity of your illness. It is very important that you follow up as instructed or that you return to the Emergency Department should you have concerns or if your condition changes or worsens in any way. You were seen today for pain in the abdomen above your umbilicus that occurred while coughing. This likely due to muscle strain from her cough chest x-ray was clear. Suspect her cough is due to a viral respiratory infection or possibly some allergies continue symptomatic medications follow-up with primary care Coding Level of Care Code ED Tank Charger for Chloe Alejo
[2023-03-06 15:12] VITALS: BP 140/88; PULSE 87; RESP 16; TEMP 36.6; O2SAT 96
[2023-03-06 15:20] LABS: Basophils # 0.1 10^3/uL (0.0-0.1); Basophils % 0.5 %; Eosinophils # 0.5 10^3/uL (0.0-0.8); Eosinophils % 3.9 %; Hematocrit 42.4 % (37-53); Lymphocytes # 2.7 10^3/uL (0.8-4.8); Lymphocytes % 22.8 %; Mean Corpuscular HGB Conc 32.3 g/dL (30-55); Mean Corpuscular Hemoglobin 26.6 pg (27-33); Mean Corpuscular Volume 82.2 fl (82-101); Mean Platelet Volume 9.8 fL (7.4-10.4); Monocytes # 0.7 10^3/uL (0.2-0.9); Monocytes % 6.1 %; Neutrophils # 7.86 10^3/uL (1.8-7.7); Nucleated Red Blood Cells % 0 %; Platelet Count 335 10^3/cmm (157-399); Red Blood Count 5.16 10^6/uL (3.85-5.65); Red Cell Distribution Width 12.6 % (12.1-15.1)
[2023-03-06 15:27] VITALS: BP 135/89; PULSE 94; RESP 18; O2SAT 96
--- NOTE | 2023-03-06 15:31 | ECG_ITS ---
[facility] Test Date: 2023-03-06 Pat Name: Dustin Lung Department: Room: Gender: Male Rare/Endangered Species Specialist: : 1995 Requested By: Brando Aragon Order Number: [id number] Brandi MD: Danna Skaggs M.D. Measurements Intervals [place] Rate: 92 P: 43 SD: 150 QRS: 58 QRSD: 94 T: 38 QT: 314 QTc: 389 Interpretive Statements SINUS RHYTHM Compared to ECG 09/22/2022 23:49:28 Sinus tachycardia no longer present Electronically Signed On 03-06-2023 16:39:17 CDT by Danna Skaggs M.D. [id number]
[2023-03-06 15:36] LABS: Alanine Aminotransferase 18 U/L (0-41); Albumin Level 4.8 g/dL (3.5-5.2); Alkaline Phosphatase 83 U/L (40-130); Anion Gap 13.9 (5-19); Aspartate Amino Transferase 15 U/L (0-40); Blood Urea Nitrogen 10 mg/dL (6-20); Carbon Dioxide 26 mmol/L (22-29); Chloride 102 mmol/L (98-107); Glomerular Filtration Rate 115.1 mL/min (90-130); Glucose 95 mg/dL (65-115); Osmolality Calculated 285 mOsm/kg (285-295); Potassium 3.9 mmol/L (3.5-5.1); Sodium 138 mmol/L (136-145); Total Bilirubin 0.6 mg/dL (0.15-1.2); Total Protein 7.8 g/dL (6.6-8.7)
== END 2023-03-06 17:04 | disposition home or self-care (01) ==
PROVIDERS: Emergency Provider Family Medicine
DX: J06.9 Acute upper respiratory infection, unspecified (principal); R05.9 Cough, unspecified; R10.33 Periumbilical pain
CPT/HCPCS: 71045; 80053; 85025; 93005; 99285

== ENCOUNTER 2023-08-31 17:46 | Emergency (ER) | payer BC, SELFPAY ==
[2023-08-31 18:03] VITALS: BP 144/84; PULSE 111; RESP 17; TEMP 37.2; O2SAT 97; BMI 30.8
--- NOTE | 2023-08-31 18:41 | W.ED.URI ---
HPI - URI/Sore Throat General: Chief Complaint: Upper Respiratory Infection Stated Complaint: Sore throat Time Seen by Provider: 08/31/23 18:41 History of Present Illness: 28-year-old male patient comes in today for complaints of sore throat. Patient does have a history of a prior tonsil abscess. Patient reports sore throat and some difficulty with swallowing at times. Patient appears nontoxic. Patient does have a history of asthma. Review of Systems General: Reports: 10 or more systems reviewed and unremarkable except in HPI and below ENMT: Reports: throat pain PFSH ED PFSH: Medical History Acquired deviated nasal septum Asthma Peritonsillar abscess Social History Smoking and tobacco/nicotine status: never used tobacco/nicotine Physical Exam Const: COMMON NORMALS: alert HENMT: COMMON NORMALS: normocephalic HEAD & SCALP: normocephalic THROAT: abnormal tonsil bilateral (Red kissing tonsils) hypertrophy Neck/C-Spine: COMMON NORMALS: full ROM Lymph: LYMPHATIC: lymphadenopathy Resp: COMMON NORMALS: normal respiratory effort and clear to auscultation bilaterally AUSCULTATION: clear to auscultation bilaterally Cardio: COMMON NORMALS: regular rate and regular rhythm RATE: regular rate RHYTHM: regular rhythm Back/Pelvis: COMMON NORMALS: thoracic and lumbar spine normal to inspection Extremity: COMMON NORMALS: no pedal edema Neuro: SENSORIUM/ORIENTATION: Yes alert Skin: COMMON NORMALS: turgor normal GENERAL SKIN EXAM: turgor normal Course Vital Signs: Vital signs: Vital Signs Temperature 99 F 08/31/23 18:03 Pulse Rate 111 H 08/31/23 18:03 Respiratory Rate 17 08/31/23 18:03 Blood Pressure 144/84 08/31/23 18:03 Pulse Oximetry 97 08/31/23 18:03 Oxygen Delivery Me thod Room Air 08/31/23 18:03 MDM - URI/Sore Throat Medical Decision Making Patient comes in today for complaints of sore throat. On exam patient is managing secretions well. Posterior pharynx shows kissing bilateral tonsils. Bilateral TMs are normal. Lungs are clear to auscultation. Abdomen soft nontender. Differential diagnosis includes not limited to tonsillar abscess, tonsillitis, tonsillar hypertrophy. Patient does endorse snoring. Patient does have a history of asthma. Will treat today with dexamethasone and clindamycin and have patient follow-up with ENT for consideration of removal of tonsils for the tonsillar hypertrophy. Patient was agreeable to plan. No radiology studies performed this visit Discharge Plan Discharge Patient Disposition: Home Clinical Impression: Acute tonsillitis Qualifiers: Pharyngitis/tonsillitis etiology: unspecified etiology Qualified Code(s): J03.90 - Acute tonsillitis, unspecified Condition: Stable Prescriptions: New prednisone 20 mg tablet 20 mg PO BID 3 Days Qty: 6 0RF clindamycin HCl 300 mg capsule 300 mg PO Q8H 7 Days Qty: 21 0RF No Action albuterol sulfate 90 mcg/actuation HFA aerosol inhaler 2 inh inhalation Q4H PRN (Reason: shortness of breath or wheezing) Qty: 16 0RF fluticasone propion-salmeterol 250-50 mcg/dose blister with device 1 inh INHALATION BID Discharge Orders: Discharge ED (Routine); Ordered 08/31/23 Ordered By: Tomás Lundberg Discharge Diet: Usual diet Discharge Activity: Increase activity as tolerated Patient Instructions: Tonsillitis (ED) Activity Restrictions/Additional Instructions: Take antibiotics as directed. Drink plenty of water and fluids with medication. Follow-up with primary care in 3 to 5 days for recheck. Case management will contact you regarding follow-up with ENT for further consideration of surgical treatment for hypertrophy of tonsils. Coding Level of Care Code ED Guard Lieutenant for Chloe Alejo
[2023-08-31] MEDS: clindamycin 150 mg Capsule 300 MG PO (18:54)
[2023-08-31] MEDS: dexamethasone 10 mg/mL INJ IM (18:55)
[2023-08-31 18:59] VITALS: BP 144/84; PULSE 98; RESP 16; TEMP 37.2; O2SAT 98
--- NOTE | 2023-09-01 07:36 | DCPLANNER ---
Message sent to ENT for follow up
== END 2023-08-31 19:00 | disposition home or self-care (01) ==
PROVIDERS: Emergency Provider Nurse Practitioner Family
DX: J03.90 Acute tonsillitis, unspecified (principal)
CPT/HCPCS: 96372; 99284; J1100; J9999

== ENCOUNTER 2023-10-24 19:43 | Emergency (ER) | payer BC, SELFPAY ==
--- NOTE | 2023-10-24 19:35 | ECG_ITS ---
[facility] Test Date: 2023-10-24 Pat Name: Dustin Lung Department: Room: Gender: Male Water And Gas Helper: : 1995 Requested By: Laura Anderson Order Number: [id number] Paz MD: Isaias Ewing M.D. Measurements Intervals [place] Rate: 84 P: 65 MD: 162 QRS: 64 QRSD: 117 T: 54 QT: 331 QTc: 393 Interpretive Statements SINUS RHYTHM MODERATE INTRAVENTRICULAR CONDUCTION DELAY [110+ ms QRS DURATION] NONSPECIFIC T-WAVE ABNORMALITY Compared to ECG 03/06/2023 15:31:50 Intraventricular conduction delay now present T-wave abnormality now present Electronically Signed On 10-25-2023 21:38:21 CDT by Isaias Ewing M.D. [id number]
[2023-10-24 19:44] VITALS: BP 153/87; PULSE 92; RESP 18; TEMP 36.7; O2SAT 96
--- NOTE | 2023-10-24 19:55 | XRR_ITS ---
PROCEDURE INFORMATION: Exam: XR Chest Exam date and time: 10/24/2023 8:54 PM Age: 28 years old Clinical indication: Shortness of breath and other: Pain; Additional info: SOB, cough TECHNIQUE: Imaging protocol: Radiologic exam of the chest. Views: 1 view. COMPARISON: CR XR chest 1V portable [id number] 03/06/2023 3:31 PM FINDINGS: Lungs: No consolidation. Pleural spaces: No large pleural effusion. No pneumothorax. Heart/Mediastinum: Unremarkable. No cardiomegaly. Bones/joints: No acute abnormality. XR/XR chest 1V portable [id number] IMPRESSION: No acute findings.
[2023-10-24 21:00] VITALS: BP 151/78; PULSE 96; RESP 18; O2SAT 94
--- NOTE | 2023-10-24 21:31 | W.ED.ASTHMA ---
HPI - Asthma General: Chief Complaint: Shortness of Breath/Dyspnea Stated Complaint: chest hurting/ sob Time Seen by Provider: 10/24/23 21:00 Source: patient Mode of arrival: ambulatory Limitations: no limitations History of Present Illness: Patient is a nice 28-year-old male with a history of asthma here for complaints of shortness of breath asthma flare. Patient states earlier today he was cleaning out a dirty air conditioner unit. He feels like he possibly witnessed mold in a portion of the unit. He states following cleaning this, he began developing some shortness of breath, cough, difficulty breathing. He had some minor chest pain. Patient states he used his rescue albuterol inhaler as well as nebulizers with improvement. He states upon arrival to the emergency department he is no longer having chest pain. He feels like wheezing has subsided. MD complaint: asthma attack , shortness of breath and wheezing Onset (ago): hour(s) Severity: moderate Context: allergen exposure Associated symptoms: Reports chest pain and non-productive cough; Deny fever(s), hemoptysis or syncope Treatments Prior to Arrival: inhaled bronchodilator and inhaled steroid Related Data: Current Asthma Therapy: inhaled bronchodilator and inhaled steroid Review of Systems Const: Denies: fever(s), chills, body aches, fatigue or malaise Card: Reports: chest pain; Denies: palpitations, irregular heart rhythm, edema, swelling of feet/ankles, lightheadedness, syncope, pre-syncope, dyspnea on exertion, orthopnea, leg pain with exertion or acrocyanosis Resp: Reports: dyspnea, non-productive cough and wheezing (improved with nebulizers/inhalers ); Denies: hemoptysis GI: Denies: abdominal pain, nausea or vomiting Musc: Denies: neck pain or back pain Neuro: Denies: headache(s) or dizziness PFSH ED PFSH: Medical History Asthma Peritonsillar abscess Acquired deviated nasal septum Social History Smoking and tobacco/nicotine status: never used tobacco/nicotine Physical Exam Const: COMMON NORMALS: no acute distress, patient oriented x3, no limitations, alert and well nourished GENERAL APPEARANCE: cooperative NUTRITIONAL APPEARANCE: overweight ORIENTATION/CONSCIOUSNESS: Yes awake, Yes oriented to person, Yes oriented to place and Yes oriented to time Chest: COMMONS NORMALS: normal inspection of the chest and normal palpation of entire chest wall Resp: COMMON NORMALS: normal respiratory effort and clear to auscultation bilaterally AUSCULTATION: clear to auscultation bilaterally Cardio: COMMON NORMALS: regular rate and regular rhythm RATE: regular rate RHYTHM: regular rhythm Neuro: COMMON NORMALS: patient oriented x3 SENSORIUM/ORIENTATION: Yes alert, Yes oriented to person, Yes oriented to place and Yes oriented to time Course Vital Signs: Vital signs: Vital Signs Temperature 98.0 F 10/24/23 19:44 Pulse Rate 96 10/24/23 21:00 Respiratory Rate 18 10/24/23 21:00 Blood Pressure 151/78 10/24/23 21:00 Pulse Oximetry 94 10/24/23 21:00 Oxygen Delivery Me thod Room Air 10/24/23 21:00 MDM - Asthma Medical Decision Making Patient's CXR is unremarkable. Vital signs are stable. Patient is not having any active chest pain. EKG obtained and unremarkable. Patient was given IV Solu-Medrol. He will be placed on a prednisone taper. Recommend he continue his inhaled corticosteroid as well as his rescue albuterol nebulizers as needed. Return to precautions given. Differential Diagnosis Likely acute exacerbation Medical Records I reviewed the patient's medical records. Lab Data Radiology Impressions Chest X-Ray 10/24/23 19:55 IMPRESSION: No acute findings. All radiology interpretation(s) finalized by discharge Discharge Plan Discharge Patient Disposition: Home Clinical Impression: Asthma with exacerbation Qualifiers: Asthma severity: mild Asthma persistence: intermittent Qualified Code(s): J45.21 - Mild intermittent asthma with (acute) exacerbation Condition: Stable Prescriptions: New prednisone 10 mg tablet 10 mg PO DAILY 6 Days Qty: 20 0RF Rx Instructions: Take 5 tabs on day 1-2, 4 tabs on day 3, 3 tabs on day 4, 2 tabs on day 5, and 1 tab on day 6 No Action albuterol sulfate 90 mcg/actuation HFA aerosol inhaler 2 inh inhalation Q4H PRN (Reason: shortness of breath or wheezing) Qty: 16 0RF fluticasone propion-salmeterol 250-50 mcg/dose blister with device 1 inh INHALATION BID Discharge Orders: Discharge ED (Routine); Ordered 10/24/23 Ordered By: Laura Anderson Patient Instructions: Asthma Exacerbation - Adult Coding Level of Care Code ED [employer] for [facility] Alejo
[2023-10-24] MEDS: methylPREDNISolone sod succ 125 mg/2 mL INJ IVP (22:14)
[2023-10-24 22:31] VITALS: BP 139/83; PULSE 91; RESP 15; O2SAT 95
== END 2023-10-24 22:34 | disposition home or self-care (01) ==
PROVIDERS: Emergency Provider Physician Assistant
DX: J45.21 Mild intermittent asthma with (acute) exacerbation (principal)
CPT/HCPCS: 71045; 93005; 96374; 99284; J2919

== ENCOUNTER → 2024-02-08 12:05 | Outpatient (BNVA) | payer BC, SELFPAY | PROVIDERS: Visit Provider Emergency Medicine | DX: R05.9 Cough, unspecified (principal) | CPT/HCPCS: 87400; 87426 ==

== ENCOUNTER 2024-06-10 04:15 | Emergency (ER) | payer BC, SELFPAY ==
[2024-06-10 04:32] VITALS: BP 114/89; PULSE 109; RESP 18; TEMP 37.4; O2SAT 93; BMI 32.2
--- NOTE | 2024-06-10 04:50 | XRR_ITS ---
PROCEDURE INFORMATION: Exam: XR Chest Exam date and time: 06/10/2024 4:56 AM Age: 29 years old Clinical indication: Cough and fever and wheezing; Additional info: Cough wheezing TECHNIQUE: Imaging protocol: Radiologic exam of the chest. Views: 1 view. COMPARISON: CR XR chest 1V portable [id number] 10/24/2023 8:54 PM FINDINGS: Lungs: RUL azygos lobe/fissure. Minor areas of bibasilar atelectasis or scarring. No consolidation. Pleural spaces: Unremarkable. No pleural effusion. No pneumothorax. Heart/Mediastinum: Unremarkable. No cardiomegaly. Bones/joints: Unremarkable. XR/XR chest 1V portable [id number] IMPRESSION: 1. No consolidation or definite acute finding. 2. Minor areas of bibasilar atelectasis or scarring.
--- NOTE | 2024-06-10 04:51 | ED_ITS ---
HPI - URI/Sore Throat 2 General: Chief Complaint: Upper Respiratory Infection Stated Complaint: Headache\Cough Time Seen by Provider: 06/10/24 04:50 History of Present Illness: Patient presents to the ER with cough cold chills headache body aches. Patient also says he cannot taste or smell. Patient went to the ER at [place] on Friday said he did chest x-ray EKG blood work and a swab told him that he had streaks on his chest x-ray which could be pneumonia they gave him cefdinir told him to take Tylenol and ibuprofen which she has been doing and that has not been helping. Patient rates his overall body aches a 6 out of 10. Patient states started to get rundown fatigued has not been sleeping well. Related Data Previous Rx's Medication Instructions Recorded cetirizine 10 mg tablet (Zyrtec) 10 mg PO DAILY #30 tabs 02/08/24 fluticasone propionate 50 2 spray intranasal BID #16 grams 02/08/24 mcg/actuation nasal spray,suspension (Flonase Allergy Relief) Allergies Allergy/AdvReac Type Severity Reaction Status Date / Time No Known Allergies Allergy Verified 06/10/24 04:40 Review of Systems 2 General: Reports: 10 or more systems reviewed and unremarkable except in HPI and below PFSH ED 2 PFSH: Medical History Asthma Peritonsillar abscess Acquired deviated nasal septum Social History Smoking and tobacco/nicotine status: tobacco/nicotine user, details unknown Physical Exam 2 Const: COMMON NORMALS: no acute distress, average body habitus, patient oriented x3, no limitations, healthy appearing, alert and well nourished HENMT: COMMON NORMALS: normocephalic, atraumatic, hearing grossly normal bilaterally, external ears normal, Normal external nose present and moist oral mucous membranes HEAD & SCALP: normocephalic and atraumatic NOSE: Normal external nose present EXTERNAL EAR: Yes external ears normal Neck/C-Spine: COMMON NORMALS: no JVD Chest: COMMONS NORMALS: normal inspection of the chest and normal palpation of entire chest wall Resp: COMMON NORMALS: normal respiratory effort, No retractions and No use of accessory muscles; negative for clear to auscultation bilaterally (Mild wheezing and rhonchi throughout) AUSCULTATION: not clear to auscultation bilaterally (Mild wheezing and rhonchi throughout) Cardio: COMMON NORMALS: no JVD, regular rhythm, S1 normal heart sound present, S2 normal heart sound present, No gallops present (Cardio), No clicks present (Cardio), No murmurs present (Cardio) and No rub (Cardio); negative for regular rate (Mild tachycardia) RATE: abnormal rate (Mild tachycardia) RHYTHM: regular rhythm HEART SOUNDS: S1 normal heart sound present and S2 normal heart sound present Neuro: COMMON NORMALS: patient oriented x3 SENSORIUM/ORIENTATION: Yes alert Course 2 Vital Signs: Vital signs: Vital Signs Temperature 99.4 F 06/10/24 04:32 Pulse Rate 107 H 06/10/24 05:24 Respiratory Rate 18 06/10/24 05:17 Blood Pressure 114/89 06/10/24 04:32 Pulse Oximetry 92 06/10/24 05:17 Oxygen Delivery Me thod Room Air 06/10/24 05:17 MDM - URI/Sore Throat Medical Decision Making Lab work was obtained as well as chest x-ray, patient is influenza A positive. Patient be discharged home. Medical Records I reviewed the patient's medical records. Lab Data I reviewed the patient's lab results. 06/10/24 05:00 06/10/24 05:00 Laboratory Results WBC 5.75 10^3/uL (3.29-11.43) 06/10/24 05:00 RBC 5.53 10^6/uL (3.85-5.65) 06/10/24 05:00 Hgb 14.00 g/dL (11.27-16.99) 06/10/24 05:00 Hct 43.9 % (37-53) 06/10/24 05:00 MCV 79.4 fl (82-101) L 06/10/24 05:00 MCH 25.3 pg (27-33) L 06/10/24 05:00 MCHC 31.9 g/dL (30-55) 06/10/24 05:00 RDW 13.7 % (12.1-15.1) 06/10/24 05:00 Plt Count 236 10^3/cmm (157-399) 06/10/24 05:00 MPV 10.3 fL (7.4-10.4) 06/10/24 05:00 Neut % (Auto) 71.7 % 06/10/24 05:00 Lymph % (Auto) 16.0 % 06/10/24 05:00 [place] % (Auto) 11.0 % 06/10/24 05:00 Eos % (Auto) 0.3 % 06/10/24 05:00 Baso % (Auto) 0.7 % 06/10/24 05:00 Neut # (Auto) 4.12 10^3/uL (1.8-7.7) 06/10/24 05:00 Lymph # (Auto) 0.9 10^3/uL (0.8-4.8) 06/10/24 05:00 [place] # (Auto) 0.6 10^3/uL (0.2-0.9) 06/10/24 05:00 Eos # (Auto) 0.0 10^3/uL (0.0-0.8) 06/10/24 05:00 Baso # (Auto) 0.0 10^3/uL (0.0-0.1) 06/10/24 05:00 Nucleated RBC % (auto) 0 % 06/10/24 05:00 Nucleated RBCs # 0.0 /100WBC 06/10/24 05:00 Sodium 134 mmol/L (136-145) L 06/10/24 05:00 Potassium 4.0 mmol/L (3.5-5.1) 06/10/24 05:00 Chloride 97 mmol/L (98-107) L 06/10/24 05:00 Carbon Dioxide 23 mmol/L (22-29) 06/10/24 05:00 Anion Gap 18.0 (5-19) 06/10/24 05:00 BUN 13 mg/dL (6-20) 06/10/24 05:00 Creatinine 1.0 mg/dL (0.7-1.2) 06/10/24 05:00 GFR Calculation 88.3 mL/min (90-130) L 06/10/24 05:00 Glucose 104 mg/dL (65-115) 06/10/24 05:00 Calculated Osmolality 278 mOsm/kg (285-295) L 06/10/24 05:00 Calcium 8.7 mg/dL (8.5-10.5) 06/10/24 05:00 Total Bilirubin 0.7 mg/dL (0.15-1.2) 06/10/24 05:00 AST 45 U/L (0-40) H 06/10/24 05:00 ALT 32 U/L (0-41) 06/10/24 05:00 Alkaline Phosphatase 80 U/L (40-130) 06/10/24 05:00 Total Protein 7.5 g/dL (6.6-8.7) 06/10/24 05:00 Albumin 4.1 g/dL (3.5-5.2) 06/10/24 05:00 Globulin 3.4 g/dL (1.3-4.6) 06/10/24 05:00 Coronavirus (PCR) Negative (Negative) 06/10/24 04:41 Influenza A (PCR) Positive (Negative) 06/10/24 04:41 Influenza Type B (PCR) Negative (Negative) 06/10/24 04:41 RSV (PCR) Negative (Negative) 06/10/24 04:41 All radiology interpretation(s) finalized by discharge Discharge Plan Discharge Patient Disposition: Home Clinical Impression: Influenza Condition: Stable Prescriptions: No Action fluticasone propionate [Flonase Allergy Relief] 50 mcg/actuation spray,suspension 2 spray intranasal BID Qty: 16 0RF Rx Instructions: administer into each nostril cetirizine [Zyrtec] 10 mg tablet 10 mg PO DAILY Qty: 30 0RF Discharge Orders: Discharge ED (Routine); Ordered 06/10/24 Ordered By: Davian Cardona Patient Instructions: Influenza (ED) Activity Restrictions/Additional Instructions: You have been diagnosed with influenza A. This is a virus there is no good treatment for this and must run its course and your body must fight it off. Usually get better in 5 to 7 days. Please follow-up with your family practice physician for further evaluation treatment. 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
[2024-06-10 05:05] LABS: Basophils % 0.7 %; Eosinophils % 0.3 %; Hematocrit 43.9 % (37-53); Lymphocytes # 0.9 10^3/uL (0.8-4.8); Mean Corpuscular HGB Conc 31.9 g/dL (30-55); Mean Corpuscular Hemoglobin 25.3 pg (27-33); Mean Corpuscular Volume 79.4 fl (82-101); Mean Platelet Volume 10.3 fL (7.4-10.4); Monocytes # 0.6 10^3/uL (0.2-0.9); Neutrophils # 4.12 10^3/uL (1.8-7.7); Neutrophils % 71.7 %; Nucleated Red Blood Cells % 0 %; Platelet Count 236 10^3/cmm (157-399); Red Blood Count 5.53 10^6/uL (3.85-5.65); Red Cell Distribution Width 13.7 % (12.1-15.1); White Blood Count 5.75 10^3/uL (3.29-11.43)
--- NOTE | 2024-06-10 05:05 | PC.NURSE ---
Patient's oxygen dipped to high [address] Cardona was notified and verbal order given for breathing treatment. RT [place] contacted.
[2024-06-10] MEDS: ipratropium-albuterol 3 mL Neb INHALATION (05:16)
[2024-06-10 05:17] VITALS: PULSE 99; RESP 18; O2SAT 92
[2024-06-10 05:23] LABS: Alanine Aminotransferase 32 U/L (0-41); Albumin Level 4.1 g/dL (3.5-5.2); Alkaline Phosphatase 80 U/L (40-130); Aspartate Amino Transferase 45 U/L (0-40); Blood Urea Nitrogen 13 mg/dL (6-20); Calcium 8.7 mg/dL (8.5-10.5); Carbon Dioxide 23 mmol/L (22-29); Chloride 97 mmol/L (98-107); Creatinine Clr Calc Pharmacy 146.2437; Globulin 3.4 g/dL (1.3-4.6); Glomerular Filtration Rate 88.3 mL/min (90-130); Glucose 104 mg/dL (65-115); Osmolality Calculated 278 mOsm/kg (285-295); Sodium 134 mmol/L (136-145); Total Bilirubin 0.7 mg/dL (0.15-1.2); Total Protein 7.5 g/dL (6.6-8.7)
[2024-06-10 05:24] VITALS: PULSE 107
[2024-06-10 05:27] LABS: Covid PCR NEGATIVE (Negative); Influenza A POSITIVE (Negative); Influenza B NEGATIVE (Negative); Respiratory Syncytial Virus Ce NEGATIVE (Negative)
[2024-06-10 05:43] VITALS: BP 117/75; PULSE 111; O2SAT 91
== END 2024-06-10 05:45 | disposition home or self-care (01) ==
PROVIDERS: Emergency Provider Emergency Medicine
DX: J10.1 Influenza due to other identified influenza virus with other respiratory manifestations (principal); Z11.52 Encounter for screening for COVID-19
CPT/HCPCS: 36415; 71045; 80053; 85025; 87637; 94640; 99284

== ENCOUNTER 2024-11-15 12:17 | Outpatient (CLI) | payer BC, SELFPAY ==
[2024-11-15 15:10] LABS: Coronavirus 229E,HKU1,NL63,OC4 Not Detected (NOT DETECT); Parainfluenza Virus Type 1 Not Detected (NOT DETECT); Parainfluenza Virus Type 2 Not Detected (NOT DETECT); Parainfluenza Virus Type 3 Detected (NOT DETECT); Parainfluenza Virus Type 4 Not Detected (NOT DETECT); SARS-COV-2 Not Detected (NOT DETECT)
[2024-11-15 15:41] LABS: Parainfluenza Virus Type 1 Not Detected (NOT DETECT); Parainfluenza Virus Type 2 Not Detected (NOT DETECT); Parainfluenza Virus Type 3 Detected (NOT DETECT); Parainfluenza Virus Type 4 Not Detected (NOT DETECT)
[2024-11-15 15:42] LABS: Results from GENMARK
[2024-11-15 17:36] LABS: Respiratory Syncytial Virus Ce NEGATIVE (Negative); SARS-CoV-2 PCR NEGATIVE (Negative)
== END 2024-11-15 12:18 | disposition home or self-care (01) ==
PROVIDERS: PCP Internal Medicine; Visit Provider Student in an Organized Health Care Education/Training Program
DX: Z29.11 Encounter for prophylactic immunotherapy for respiratory syncytial virus (RSV) (principal); Z11.52 Encounter for screening for COVID-19; Z11.59 Encounter for screening for other viral diseases
CPT/HCPCS: 87631; 87635; 87637